=== PATIENT | female | born 1955 | race African-American/Black ===

== ENCOUNTER → 2019-09-24 | Outpatient (CLI) | payer MEDICARE, BC ==
[~2019-09-24] MED LIST: CALC1CAP8 PO; ERGO500017 PO; LEVO100T5 PO; VITA1TAB19 PO; VOXE500T PO
== END | disposition home or self-care (01) ==
LOC: STAR 10:30
PROVIDERS: ATTEND Nurse Practitioner
DX: Z01.818 Encounter for other preprocedural examination (principal); D57.1 Sickle-cell disease without crisis
CPT/HCPCS: 93005